=== PATIENT | female | born 1990 | race African-American/Black ===

== ENCOUNTER 2018-02-04 09:57 | Emergency (ER) | payer SELFPAY ==
[~2018-02-04] VITALS: Ht 175.3 cm; Wt 65.8 kg
[~2018-02-04 09:57] MED LIST: CIPR500T94 PO; NAPR500T8 PO; PHEN-318 PO
[2018-02-04 10:26] LABS: BILIRUBIN,URINE NEGATIVE (NEG); CLARITY,URINE CLOUDY; COLOR,URINE AMBER; NITRITE,URINE POSITIVE (NEG); PH,URINE 6.5; PROTEIN,URINE 100 mg/dL (NEG-TRACE)
[2018-02-04 10:34] LABS: BACTERIA,URINE MANY /HPF (0-FEW); SQUAMOUS EPITHELIAL CELL,UR OCC /LPF; WBC,URINE TNTC /HPF (0-4)
[2018-02-04 10:35] LABS: RBC,URINE >40 /HPF (0-2)
[2018-02-04 10:41] VITALS: BP 116/91
[2018-02-04] MEDS ORDERED: METR500T PO (10:47)
[2018-02-04] MEDS ORDERED: CEPH500T PO (10:47)
--- NOTE | 2018-02-04 10:48 | PHYS DOC ---
Past Medical History Past Medical History: UTI Past Surgical History: Alcohol Use: None Drug Use: Marijuana Adult General Chief Complaint Chief Complaint: ABDOMINAL PAIN HPI HPI Patient is a 27 year old female with no significant medical history who presents today complaining of dysuria and vaginal discharge for 3 days. Patient is also complaining of intermittent episodes of slight bilateral pelvic pain. Patient denies any fever, nausea vomiting or diarrhea. Denies any chance she is . Denies any concerns for STDs but would like to be tested and not treated until proven to have an STD. Review of Systems Review of Systems Constitutional: Denies fever or chills [] Eyes: Denies change in visual acuity, redness, or eye pain [] HENT: Denies nasal congestion or sore throat [] Respiratory: Denies cough or shortness of breath [] Cardiovascular: No additional information not addressed in HPI [] GI: Denies nausea, vomiting, bloody stools or diarrhea [] Female : Reports vaginal discharge and slight pelvic pain : Pupils dysuria, denies hematuria [] Musculoskeletal: Denies back pain or joint pain [] Integument: Denies rash or skin lesions [] Neurologic: Denies headache, focal weakness or sensory changes [] All other systems were reviewed and found to be within normal limits, except as documented in this note. Allergies Allergies Allergies Coded Allergies Type Severity Reaction Last Updated Verified No Known Drug Allergies 12/03/13 No Physical Exam Physical Exam Constitutional: Well developed, well nourished, no acute distress, non-toxic appearance. [] HENT: Normocephalic, atraumatic, bilateral external ears normal, oropharynx moist, no oral exudates, nose normal. [] Eyes: PERRLA, EOMI, conjunctiva normal, no discharge. [] Neck: Normal range of motion, no tenderness, supple, no stridor. [] Cardiovascular:Heart rate regular rhythm, no murmur [] Lungs & Thorax: Bilateral breath sounds clear to auscultation [] Abdomen: Bowel sounds normal, soft, no tenderness, no masses, no pulsatile masses. [] Pelvic exam: External pelvic appears normal, cervix is closed, no CMT, no adnexal tenderness, small amount of clear white discharge in the vaginal vault. Skin: Warm, dry, no erythema, no rash. [] Back: No tenderness, no CVA tenderness. [] Extremities: No tenderness, no cyanosis, no clubbing, ROM intact, no edema. [] Neurologic: Alert and oriented X 3, normal motor function, normal sensory function, no focal deficits noted. [] Psychologic: Affect normal, judgement normal, mood normal. [] Current Patient Data Lab Values Laboratory Tests Test 02/04/18 10:03 02/04/18 10:11 Urine Collection Type Void Urine Color Lucretia Urine Clarity Cloudy Urine pH 6.5 Urine Specific [place] >=1.030 Urine Protein 100 mg/dL (NEG-TRACE) Urine Glucose (UA) Negative mg/dL (NEG) Urine Ketones (Stick) Trace mg/dL (NEG) Urine Blood Large (NEG) Urine Nitrite Positive (NEG) Urine Bilirubin Negative (NEG) Urine Urobilinogen Dipstick 1.0 mg/dL (0.2 mg/dL) Urine Leukocyte Esterase Large (NEG) Urine RBC >40 /HPF (0-2) Urine WBC Tntc /HPF (0-4) Urine Squamous Epithelial Cells Occ /LPF Urine Bacteria Many /HPF (0-FEW) POC Urine HCG, Qualitative Hcg negative (Negative) Microbiology 02/04/18 Wet Prep - Final, Complete EKG EKG [] Radiology/Procedures Radiology/Procedures [] Course & Med Decision Making Course & Med Decision Making Pertinent Labs and Imaging studies reviewed. (See chart for details) This is a 27-year-old female patient presented to the ED today with complaints of dysuria and pelvic pain for 3 days. Negative urine hCG, positive for UTI and bacterial vaginosis. Discharged with Flagyl and cephalexin. Tylenol Motrin for pain. Follow-up with primary care doctor or [facility] in 1-2 weeks as needed. Dragon Disclaimer Dragon Disclaimer This electronic medical record was generated, in whole or in part, using a voice recognition dictation system. Departure Departure Impression: Primary Impression: UTI (lower urinary tract infection) Additional Impression: Bacterial vaginosis Disposition: 01 HOME, SELF-CARE Condition: STABLE Referrals: NO PCP (PCP) BIBI MOSS MD Follow-up in one week Patient Instructions: Bacterial Vaginosis, [id number], Urinary Tract Infection Additional Instructions: You have urinary tract infection and bacterial vaginosis. We put you on antibiotics. Ensure you complete them. Follow-up with primary care doctor or OB/ [facility] in 1-2 weeks. Scripts Metronidazole (FLAGYL) 500 Mg Tablet 1 TAB PO BID, #14 TAB Prov: MOHAN ADLER APRN 02/04/18 Cephalexin (CEPHALEXIN) 500 Mg Tablet 1 TAB PO BID, #14 TAB Prov: MOHAN ADLER APRN 02/04/18 Problem Qualifiers MOHAN ADLER APRN Feb 04, 2018 10:47
[2018-02-05 15:27] LABS: GC PROBE Negative (Negative)
== END 2018-02-04 11:09 | disposition home or self-care (01) ==
LOC: ER 09:57
DX: N39.0 Urinary tract infection, site not specified (principal); N76.0 Acute vaginitis; B96.89 Other specified bacterial agents as the cause of diseases classified elsewhere; Z98.890 Other specified postprocedural states
CPT/HCPCS: 81001; 81025; 87491; 87591; 99284; Q0111

== ENCOUNTER 2018-05-14 13:30 | Emergency (ER) | payer SELFPAY ==
[~2018-05-14] VITALS: Ht 175.3 cm; Wt 65.8 kg
[~2018-05-14 13:30] MED LIST changes: +CEPH500T PO; +METR500T PO
[2018-05-14 14:40] VITALS: BP 110/72
[2018-05-14 15:08] LABS: BILIRUBIN,URINE NEGATIVE (NEG); CLARITY,URINE CLOUDY; COLOR,URINE AMBER; NITRITE,URINE POSITIVE (NEG); PROTEIN,URINE 100 mg/dL (NEG-TRACE)
[2018-05-14 15:17] LABS: BACTERIA,URINE MANY /HPF (0-FEW); RBC,URINE TNTC /HPF (0-2); WBC,URINE TNTC /HPF (0-4)
[2018-05-14 15:18] LABS: SQUAMOUS EPITHELIAL CELL,UR MOD /LPF
[2018-05-14] MEDS ORDERED: CEPH-264 PO (15:49)
[2018-05-14] MEDS ORDERED: PHEN100T82 PO (15:49)
--- NOTE | 2018-05-14 15:49 | PHYS DOC ---
Past Medical History Past Medical History: No Pertinent History, UTI Past Surgical History: No Surgical History, Alcohol Use: Occasionally Drug Use: Marijuana Adult General Chief Complaint Chief Complaint: VAGINAL PROBLEM HPI HPI Patient is a 28 year old AA female who presents to the emergency room complaints of painful urination and blood on the toilet tissue when she wipes for the last 2 days. Patient denies any irregular vaginal discharge, back pain, lower abdominal pain, vaginal itching, or concerns of this sexually transmitted infection. Patient states that her last menstrual period was approximately 2 weeks ago, she denies any concerns of . Patient also denies any foul- smelling vaginal discharge or foul-smelling urine. Review of Systems Review of Systems Constitutional: Denies fever or chills [] HENT: Denies nasal congestion or sore throat [] Respiratory: Denies cough or shortness of breath [] GI: Denies abdominal pain, nausea, vomiting, or diarrhea [] : See history of present illness Musculoskeletal: Denies back pain Integument: Denies rash or skin lesions [] Neurologic: Denies headache, focal weakness or sensory changes [] All other systems were reviewed and found to be within normal limits, except as documented in this note. Allergies Allergies Allergies Coded Allergies Type Severity Reaction Last Updated Verified No Known Drug Allergies 12/03/13 No Physical Exam Physical Exam Constitutional: Well developed, well nourished, no acute distress, non-toxic appearance. [] HENT: Normocephalic, atraumatic, bilateral external ears normal, oropharynx moist, no oral exudates, nose normal. [] Eyes: conjunctiva normal, no discharge. [] Neck: Normal range of motion, no tenderness, supple, no stridor. [] Cardiovascular: Heart rate regular rhythm, no murmur [] Lungs & Thorax: Bilateral breath sounds clear to auscultation [] Abdomen: Bowel sounds normal, soft, no tenderness, no masses, no pulsatile masses. [] Skin: Warm, dry, no erythema, no rash. [] Back: No CVA tenderness. [] Neurologic: Alert and oriented X 3, normal motor function, normal sensory function, no focal deficits noted. [] Psychologic: Affect normal, judgement normal, mood normal. [] Current Patient Data Vital Signs Vital Signs Date Time Temp Pulse Resp B/P (MAP) Pulse Ox O2 Delivery O2 Flow Rate FiO2 05/14/18 14:40 98.3 76 19 110/72 (85) 100 Room Air 98.3 Lab Values Laboratory Tests Test 05/14/18 13:40 05/14/18 13:48 Urine Collection Type Void Urine Color Lucretia Urine Clarity Cloudy Urine pH 6.0 Urine Specific [place] >=1.030 Urine Protein 100 mg/dL (NEG-TRACE) Urine Glucose (UA) Negative mg/dL (NEG) Urine Ketones (Stick) 15 mg/dL (NEG) Urine Blood Large (NEG) Urine Nitrite Positive (NEG) Urine Bilirubin Negative (NEG) Urine Urobilinogen Dipstick 1.0 mg/dL (0.2 mg/dL) Urine Leukocyte Esterase Large (NEG) Urine RBC Tntc /HPF (0-2) Urine WBC Tntc /HPF (0-4) Urine Squamous Epithelial Cells Mod /LPF Urine Bacteria Many /HPF (0-FEW) Urine Mucus Mod /LPF POC Urine HCG, Qualitative Hcg negative (Negative) EKG EKG [] Radiology/Procedures Radiology/Procedures [] Course & Med Decision Making Course & Med Decision Making Pertinent Labs and Imaging studies reviewed. (See chart for details) dx: UTI with hematuria Patient refused a pelvic exam. Urine was positive for urinary tract infection with nitrates present. [] Dragon Disclaimer Dragon Disclaimer This electronic medical record was generated, in whole or in part, using a voice recognition dictation system. Departure Departure Impression: Primary Impression: UTI (lower urinary tract infection) Disposition: 01 HOME, SELF-CARE Condition: STABLE Referrals: NO PCP (PCP) Patient Instructions: Urinary Tract Infection, [id number] Additional Instructions: Fill prescription(s) and use as directed. Avoid bladder irritants such as caffeine, carbonation, and spicy foods. Increase clear fluids. Follow up with your primary care doctor if symptoms persist, return to the ER if symptoms worsen. Scripts Phenazopyridine Hcl (PYRIDIUM) 100 Mg Tablet 100 MG PO TID PRN for PAIN for 4 Days, #12 TAB 0 Refills Prov: GENARO MARCUS TAXICAB COORDINATOR 05/14/18 Cephalexin (KEFLEX) 500 Mg Capsule 1 CAP PO BID, #14 CAP 0 Refills Prov: GENARO MARCUS TAXICAB COORDINATOR 05/14/18 GENARO MARCUS TAXICAB COORDINATOR May 14, 2018 15:49
== END 2018-05-14 15:53 | disposition home or self-care (01) ==
LOC: ER 13:30
DX: N39.0 Urinary tract infection, site not specified (principal); Z87.440 Personal history of urinary (tract) infections
CPT/HCPCS: 81001; 81025; 87086; 87186; 99283

== ENCOUNTER 2019-04-17 14:30 | Emergency (ER) | payer SELFPAY ==
[~2019-04-17] VITALS: Ht 175.3 cm; Wt 65.8 kg
[~2019-04-17 14:30] MED LIST changes: +CEPH-264 PO; +PHEN100T82 PO
[2019-04-17 15:29] VITALS: BP 110/57
[2019-04-17 15:32] LABS: BILIRUBIN,URINE NEGATIVE (NEG); CLARITY,URINE TURBID; COLOR,URINE YELLOW; NITRITE,URINE POSITIVE (NEG); PH,URINE 6.5; PROTEIN,URINE >=300 mg/dL (NEG-TRACE)
[2019-04-17 15:50] LABS: BACTERIA,URINE MODERATE /HPF (0-FEW); SQUAMOUS EPITHELIAL CELL,UR OCC /LPF; WBC,URINE TNTC /HPF (0-4)
[2019-04-17] MEDS ORDERED: CIPR250T30 PO (16:37)
[2019-04-17] MEDS ORDERED: PHEN100T82 PO (16:37)
--- NOTE | 2019-04-17 16:37 | PHYS DOC ---
Past Medical History Past Medical History: No Pertinent History, UTI Past Surgical History: No Surgical History, Alcohol Use: Occasionally Drug Use: Marijuana Adult General Chief Complaint Chief Complaint: PAIN ON URINATION HPI HPI Patient is a 29 year old AA female who presents to the emergency department with complaints of painful urination for the last 7 days. Patient reports burning with urination, low back pain, increased urinary frequency. She currently rates her discomfort a 7 out of 10 on pain scale. Patient denies any blood in her urine, abnormal vaginal discharge, vaginal itching, or abnormal vaginal odor. She denies any fever, cough, shortness of breath, nausea, vomiting, diarrhea, palpitations, or chest pain. She denies any alleviating factors. All other ROS is neg unless otherwise noted in HPI. Review of Systems Review of Systems See Above Allergies Allergies Allergies Coded Allergies Type Severity Reaction Last Updated Verified No Known Drug Allergies 12/03/13 No Physical Exam Physical Exam See Above Constitutional: Well developed, well nourished, no acute distress, non-toxic appearance. [] HENT: Normocephalic, atraumatic, bilateral external ears normal, nose normal. [] Eyes: PERRLA, EOMI, conjunctiva normal, no discharge. [] Neck: Normal range of motion, no stridor. [] Lungs & Thorax: Respirations even and unlabored, no retractions, no respiratory distress Abdomen: soft, suprapubic tenderness Skin: Warm, dry, no erythema, no rash. [] Back: No CVA tenderness. [] Extremities: No cyanosis, ROM intact, no edema. [] Neurologic: Alert and oriented X 3, no focal deficits noted. [] Psychologic: Affect normal, judgement normal, mood normal. [] Current Patient Data Vital Signs Vital Signs Date Time Temp Pulse Resp B/P (MAP) Pulse Ox O2 Delivery O2 Flow Rate FiO2 04/17/19 15:29 98.2 88 16 110/57 (74) 99 Room Air 98.2 Lab Values Laboratory Tests Test 04/17/19 15:07 04/17/19 15:09 Urine Color Yellow Urine Clarity Turbid Urine pH 6.5 Urine Specific [place] 1.025 Urine Protein >=300 mg/dL (NEG-TRACE) Urine Glucose (UA) Negative mg/dL (NEG) Urine Ketones (Stick) Negative mg/dL (NEG) Urine Blood Large (NEG) Urine Nitrite Positive (NEG) Urine Bilirubin Negative (NEG) Urine Urobilinogen Dipstick 1.0 mg/dL (0.2 mg/dL) Urine Leukocyte Esterase Large (NEG) Urine RBC 6-10 /HPF (0-2) Urine WBC Tntc /HPF (0-4) Urine Squamous Epithelial Cells Occ /LPF Urine Bacteria Moderate /HPF (0-FEW) Urine Mucus Slight /LPF POC Urine HCG, Qualitative Hcg negative (Negative) EKG EKG [] Radiology/Procedures Radiology/Procedures [] Course & Med Decision Making Course & Med Decision Making Pertinent Labs and Imaging studies reviewed. (See chart for details) [] Dragon Disclaimer Dragon Disclaimer This electronic medical record was generated, in whole or in part, using a voice recognition dictation system. Departure Departure Impression: Primary Impression: UTI (lower urinary tract infection) Disposition: HOME, SELF-CARE Condition: STABLE Referrals: NO PCP (PCP) Patient Instructions: Urinary Tract Infection, [id number] Additional Instructions: Fill prescription(s) and use as directed. Avoid bladder irritants such as caffeine, carbonation, and spicy foods. Increase clear fluids. Follow up with your primary care doctor if symptoms persist, return to the ER if symptoms worsen. Scripts Phenazopyridine Hcl (PYRIDIUM) 100 Mg Tablet 1 TAB PO TID for urinary discomfort for 3 Days, #9 TAB 0 Refills Prov: GENARO MARCUS [employer]IMAL [employer] SUPERVISOR 04/17/19 Ciprofloxacin Hcl (CIPRO) 250 Mg Tablet 1 TAB PO BID for 3 Days, #6 TAB 0 Refills Prov: GENARO MARCUS APRN 04/17/19 GENARO MARCUS APRN Apr 17, 2019 16:37
== END 2019-04-17 16:42 | disposition home or self-care (01) ==
LOC: ER 14:30
DX: N39.0 Urinary tract infection, site not specified (principal); F12.90 Cannabis use, unspecified, uncomplicated; Z98.890 Other specified postprocedural states
CPT/HCPCS: 81001; 81025; 87086; 99284

== ENCOUNTER 2019-06-04 10:02 | Emergency (ER) | payer SELFPAY ==
[~2019-06-04] VITALS: Ht 162.6 cm; Wt 65.9 kg
[~2019-06-04 10:02] MED LIST changes: +CIPR250T30 PO
[2019-06-04 10:32] LABS: BARBITURATES NEG (NEG); BENZODIAZEPINES NEG (NEG); CANNABINOIDS POS (NEG); COCAINE NEG (NEG); METHADONE NEG (NEG); OPIATES NEG (NEG); PHENCYCLIDINE NEG (NEG)
[2019-06-04 10:33] LABS: BILIRUBIN,URINE NEGATIVE (NEG); CLARITY,URINE TURBID; COLOR,URINE AMBER; NITRITE,URINE POSITIVE (NEG); PROTEIN,URINE 100 mg/dL (NEG-TRACE)
[2019-06-04 10:35] LABS: AMPHETAMINE/METHAMPHETAMINE NEG (NEG)
[2019-06-04 10:43] LABS: WBC,URINE TNTC /HPF (0-4)
[2019-06-04 10:44] LABS: BACTERIA,URINE MODERATE /HPF (0-FEW); RBC,URINE FIELD OBSCURED /HPF (0-2); SQUAMOUS EPITHELIAL CELL,UR OCC /LPF
[2019-06-04 10:55] LABS: BASO % 1 % (0-3); EOS # 0.1 x10^3/uL (0.0-0.7); EOS % 1 % (0-3); HEMATOCRIT 34.3 % (36.0-47.0); HEMOGLOBIN 11.5 g/dL (12.0-15.5); LYMPH # 2.1 x10^3/uL (1.0-4.8); LYMPH % 34 % (24-48); MEAN CORPUSCULAR HEMOGLOBIN 29 pg (25-35); MEAN CORPUSCULAR HGB CONC 34 g/dL (31-37); MEAN CORPUSCULAR VOLUME 88 fL (79-100); MONO # 0.6 x10^3/uL (0.0-1.1); MONO % 9 % (0-9); NEUT # 3.4 x10^3/uL (1.8-7.7); NEUT % 55 % (31-73); PLATELET COUNT 243 x10^3/uL (140-400); RED BLOOD COUNT 3.92 x10^6/uL (3.50-5.40); RED CELL DISTRIBUTION WIDTH 15.4 % (11.5-14.5); WHITE BLOOD COUNT 6.2 x10^3/uL (4.0-11.0)
--- NOTE | 2019-06-04 10:57 | PHYS DOC ---
Past Medical History Past Medical History: No Pertinent History, UTI Past Surgical History: No Surgical History, Alcohol Use: Occasionally Drug Use: Marijuana Adult General Chief Complaint Chief Complaint: VAGINAL PROBLEM HPI HPI Patient is a 29 year old female who presents to the ED today requesting to be e valuated for pelvic pain, vaginal pain, dysuria, urgency and frequency which she reports has been going on for months. Patient states she was seen in the ED in April for the same complaint and was diagnosed with UTI, she states she was given antibiotics which she completed but has not obtained any relief. Denies any chance she is . She initially was refusing a pelvic exam. She eventually agreed to it. Review of Systems Review of Systems Constitutional: Denies fever or chills [] Eyes: Denies change in visual acuity, redness, or eye pain [] HENT: Denies nasal congestion or sore throat [] Respiratory: Denies cough or shortness of breath [] Cardiovascular: No additional information not addressed in HPI [] GI: Reports pelvic pain, vaginal pain, urgency, frequency and dysuria, denies nausea, vomiting, bloody stools or diarrhea [] : Denies dysuria or hematuria [] Musculoskeletal: Denies back pain or joint pain [] Integument: Denies rash or skin lesions [] Neurologic: Denies headache, focal weakness or sensory changes [] All other systems were reviewed and found to be within normal limits, except as documented in this note. Current Medications Current Medications Current Medications Medications (Trade) Dose Ordered Sig/Samantha Start Time Stop Time Status Last Admin Dose Admin Acetaminophen/ Hydrocodone Bitart (Lortab 5/325) 1 tab 1X ONCE 06/04/19 11:30 06/04/19 11:33 DC 06/04/19 11:46 1 TAB Azithromycin (Zithromax) 1,000 mg 1X ONCE 06/04/19 13:00 06/04/19 13:01 DC 06/04/19 13:24 1,000 MG Ceftriaxone Sodium (Rocephin Im) 1 gm 1X ONCE 06/04/19 13:00 06/04/19 13:01 UNV Ceftriaxone Sodium (Rocephin) 1 gm 1X ONCE 06/04/19 12:45 06/04/19 12:46 DC 06/04/19 12:38 1 GM Ketorolac Tromethamine (Toradol 30mg Vial) 30 mg 1X ONCE 1/23/20 13:00 06/04/19 13:01 DC 06/04/19 13:24 30 MG Metronidazole (Flagyl) 2,000 mg 1X ONCE 06/04/19 13:00 06/04/19 13:01 DC 06/04/19 13:22 2,000 MG Naproxen (Naprosyn) 500 mg 1X STAT 06/04/19 11:30 06/04/19 11:33 DC 06/04/19 11:46 500 MG Phenazopyridine HCl (Pyridium) 200 mg 1X ONCE 06/04/19 13:00 06/04/19 13:01 DC 06/04/19 13:21 200 MG Sodium Chloride 1,000 ml @ 1,000 mls/hr 1X ONCE 06/04/19 12:45 06/04/19 13:44 06/04/19 12:40 1,000 MLS/HR Allergies Allergies Allergies Coded Allergies Type Severity Reaction Last Updated Verified No Known Drug Allergies 12/03/13 No Physical Exam Physical Exam Constitutional: Well developed, well nourished, no acute distress, non-toxic appearance. [] HENT: Normocephalic, atraumatic, bilateral external ears normal, oropharynx moist, no oral exudates, nose normal. [] Eyes: PERRLA, EOMI, conjunctiva normal, no discharge. [] Neck: Normal range of motion, no tenderness, supple, no stridor. [] Cardiovascular:Heart rate regular rhythm, no murmur [] Lungs & Thorax: Bilateral breath sounds clear to auscultation [] Abdomen: Bowel sounds normal, soft, no tenderness, no masses, no pulsatile masses. [] Pelvic exam External pelvic appears normal, when the speculum was placed in the vaginal vault, moderate amount of what appears to be old blood reported from the vagina, the blood smells, cervix not visualized due to bleeding. No CMT, no adnexal tenderness. Skin: Warm, dry, no erythema, no rash. [] Back: No tenderness, no CVA tenderness. [] Extremities: No tenderness, no cyanosis, no clubbing, ROM intact, no edema. [] Neurologic: Alert and oriented X 3, normal motor function, normal sensory function, no focal deficits noted. [] Psychologic: Affect normal, judgement normal, mood normal. [] Current Patient Data Vital Signs Vital Signs Date Time Temp Pulse Resp B/P (MAP) Pulse Ox O2 Delivery O2 Flow Rate FiO2 06/04/19 12:47 72 18 113/76 (88) 100 Room Air 06/04/19 10:36 98.6 98.6 Lab Values Laboratory Tests Test 06/04/19 10:16 06/04/19 10:18 06/04/19 10:47 Urine Collection Type Unknown Urine Color Lucretia Urine Clarity Turbid Urine pH 6.0 Urine Specific [place] 1.025 Urine Protein 100 mg/dL (NEG-TRACE) Urine Glucose (UA) Negative mg/dL (NEG) Urine Ketones (Stick) Negative mg/dL (NEG) Urine Blood Large (NEG) Urine Nitrite Positive (NEG) Urine Bilirubin Negative (NEG) Urine Urobilinogen Dipstick 1.0 mg/dL (0.2 mg/dL) Urine Leukocyte Esterase Large (NEG) Urine RBC Field obscured /HPF (0-2) Urine WBC Tntc /HPF (0-4) Urine Squamous Epithelial Cells Occ /LPF Urine Bacteria Moderate /HPF (0-FEW) Urine Opiates Screen Neg (NEG) Urine Methadone Screen Neg (NEG) Urine Barbiturates Neg (NEG) Urine Phencyclidine Screen Neg (NEG) Urine Amphetamine/Methamphetamine Neg (NEG) Urine Benzodiazepines Screen Neg (NEG) Urine Cocaine Screen Neg (NEG) Urine Cannabinoids Screen Pos (NEG) Urine Ethyl Alcohol Neg (NEG) POC Urine HCG, Qualitative Hcg negative (Negative) White Blood Count 6.2 x10^3/uL (4.0-11.0) Red Blood Count 3.92 x10^6/uL (3.50-5.40) Hemoglobin 11.5 g/dL (12.0-15.5) L Hematocrit 34.3 % (36.0-47.0) L Mean Corpuscular Volume 88 fL (79-100) Mean Corpuscular Hemoglobin 29 pg (25-35) Mean Corpuscular Hemoglobin Concent 34 g/dL (31-37) Red Cell Distribution Width 15.4 % (11.5-14.5) H Platelet Count 243 x10^3/uL (140-400) Neutrophils (%) (Auto) 55 % (31-73) Lymphocytes (%) (Auto) 34 % (24-48) Monocytes (%) (Auto) 9 % (0-9) Eosinophils (%) (Auto) 1 % (0-3) Basophils (%) (Auto) 1 % (0-3) Neutrophils # (Auto) 3.4 x10^3/uL (1.8-7.7) Lymphocytes # (Auto) 2.1 x10^3/uL (1.0-4.8) Monocytes # (Auto) 0.6 x10^3/uL (0.0-1.1) Eosinophils # (Auto) 0.1 x10^3/uL (0.0-0.7) Basophils # (Auto) 0.0 x10^3/uL (0.0-0.2) Sodium Level 138 mmol/L (136-145) Potassium Level 3.7 mmol/L (3.5-5.1) Chloride Level 105 mmol/L (98-107) Carbon Dioxide Level 22 mmol/L (21-32) Anion Gap 11 (6-14) Blood Urea Nitrogen 11 mg/dL (7-20) Creatinine 0.8 mg/dL (0.6-1.0) Estimated GFR (Cockcroft-Gault) 104.1 BUN/Creatinine Ratio 14 (6-20) Glucose Level 98 mg/dL (70-99) Calcium Level 8.6 mg/dL (8.5-10.1) Total Bilirubin 0.3 mg/dL (0.2-1.0) Aspartate Amino Transferase (AST) 18 U/L (15-37) Alanine Aminotransferase (ALT) 21 U/L (14-59) Alkaline Phosphatase 68 U/L (46-116) Total Protein 7.3 g/dL (6.4-8.2) Albumin 3.6 g/dL (3.4-5.0) Albumin/Globulin Ratio 1.0 (1.0-1.7) Ethyl Alcohol Level < 10 mg/dL (0-10) Laboratory Tests 06/04/19 10:47 Laboratory Tests 06/04/19 10:47 EKG EKG [] Radiology/Procedures Radiology/Procedures []REASON: pelvic pain; Blood in urine per pt; pain over bladder per pt PROCEDURE: PELVIS COMPLETE Examination: PELVIS COMPLETE History: Pelvic pain. Hematuria. Comparison/Correlation: None Findings: Transabdominal pelvic ultrasound was performed. Transvaginal technique was not performed as the patient declined due to pain. Uterus measures 8.3 cm x 5.1 cm x 4.7. Myometrium is unremarkable. Endometrial thickness is 0.6. Ovaries are not identified. No pelvic free fluid. Circumferential wall thickening of the urinary bladder is present. Margin however is irregular. Intermediate echogenicity irregular shaped masslike structure within the urinary bladder noted. Linear densities also present within urinary bladder. Impression: Urinary bladder wall thickening. Intermediate echogenicity within the urinary bladder. Findings which may represent hemorrhage and cystitis. Neoplastic etiology may alternatively account for the findings. Ovaries are not identified. Electronically signed by: Ed Pavon MD (06/04/2019 11:40 AM) [facility] DICTATED and SIGNED BY: ED PAVON MD DATE: 06/04/19 1140 PROCEDURE: CT ABDOMEN PELVIS WO CONTRAST Examination: CT ABDOMEN PELVIS WO CONTRAST History: Dysuria Comparison/Correlation: 06/04/2019 pelvic ultrasound exam Findings: Axial images of the abdomen and pelvis were obtained without contrast. Sagittal and coronal reformatted images were provided. Lack of IV contrast may limit detection of mass lesions and inflammatory processes of the muscle. Visualized lung bases are clear. Liver, spleen, pancreas, adrenal glands, and kidneys are normal. No radiopaque collecting system calculi. Gallbladder fossa is unremarkable. Circumferential wall thickening of the urinary bladder is present with surrounding stranding. Moderate quantity of stool in the colon noted. No extraluminal gas. No inflammatory change about the cecum. No enlarged abdominal or pelvic lymph nodes. No loculated collections. Bony structures are unremarkable. Impression: Circumferential wall thickening of the urinary bladder with surrounding stranding. Cystitis may account for this finding. Neoplastic etiology is not excluded. PQRS Compliance Statement: One or more of the following individualized dose reduction techniques were utilized for this examination: 1. Automated exposure control 2. Adjustment of the mA and/or kV according to patient size 3. Use of iterative reconstruction technique Electronically signed by: Ed Pavon MD (06/04/2019 12:06 PM) [facility] DICTATED and SIGNED BY: ED PAVON MD DATE: 06/04/19 1206 Course & Med Decision Making Course & Med Decision Making Pertinent Labs and Imaging studies reviewed. (See chart for details) This is a 29-year-old female patient presenting to the ED today complaining of vaginal pain, pelvic pain, urgency frequency and dysuria that has been going on for weeks. Was seen in the ED on Apr 17 treated for UTI with Cipro. CBC with a normal WBC, CMP wtih no acute findings, urine analysis is noted for nitrites, large amount of leukocytes. CT of the abdomen and pelvic was noted for cystitis. Patient was given IV fluids. Even Rocephin IV in the ED. I spoke to Dr. mejia for possible admission. He recommended we cover patient for STD with another 1 g of Rocephin IM, and azithromycin. Patient was also given Flagyl. Recommended we discharged her on Cipro because her previous urine culture shows she is susceptible to it. Recommended she follows up with a urologist. Dragon Disclaimer Dragon Disclaimer This electronic medical record was generated, in whole or in part, using a voice recognition dictation system. Departure Departure Impression: Primary Impression: Acute cystitis Disposition: HOME, SELF-CARE Condition: STABLE Referrals: NO PCP (PCP) Please follow up with a urologist at [facility] or [facility] BIBI MOSS MD follow up with the provided OBGYN in 2 week Patient Instructions: Urinary Tract Infection Additional Instructions: You have bladder infection Please take the prescribed antibiotics until completed.] Please follow up with a urologist of your choice. You can call [facility] for Urology follow up Please push fluids. Scripts Ciprofloxacin Hcl (CIPRO) 250 Mg Tablet 1 TAB PO BID for 3 Days, #6 TAB 0 Refills Prov: MOHAN ADLER APRN 06/04/19 Phenazopyridine Hcl (PYRIDIUM) 100 Mg Tablet 1 TAB PO TID for urinary discomfort, #4 TAB 0 Refills Prov: MOHAN ADLER APRN 06/04/19 Problem Qualifiers Primary Impression: Acute cystitis Hematuria presence: with hematuria Qualified Codes: N30.01 - Acute cystitis with hematuria MOHAN ADLER APRN Jun 04, 2019 10:57
[2019-06-04 11:04] LABS: CALCIUM 8.6 mg/dL (8.5-10.1); CREATININE 0.8 mg/dL (0.6-1.0); GFR 104.1; POTASSIUM 3.7 mmol/L (3.5-5.1)
[2019-06-04 11:09] LABS: ALBUMIN 3.6 g/dL (3.4-5.0); TOTAL BILIRUBIN 0.3 mg/dL (0.2-1.0); TOTAL PROTEIN 7.3 g/dL (6.4-8.2)
--- NOTE | 2019-06-04 11:42 | RAD ---
Examination: PELVIS COMPLETE History: Pelvic pain. Hematuria. Comparison/Correlation: None Findings: Transabdominal pelvic ultrasound was performed. Transvaginal technique was not performed as the patient declined due to pain. Uterus measures 8.3 cm x 5.1 cm x 4.7. Myometrium is unremarkable. Endometrial thickness is 0.6. Ovaries are not identified. No pelvic free fluid. Circumferential wall thickening of the urinary bladder is present. Margin however is irregular. Intermediate echogenicity irregular shaped masslike structure within the urinary bladder noted. Linear densities also present within urinary bladder. Impression: Urinary bladder wall thickening. Intermediate echogenicity within the urinary bladder. Findings which may represent hemorrhage and cystitis. Neoplastic etiology may alternatively account for the findings. Ovaries are not identified. Electronically signed by: Ed Briseno MD (06/04/2019 11:40 AM) [facility]
[2019-06-04] MEDS: NAPROXEN 500 MG TABLET PO STA (11:46)
[2019-06-04] MEDS: HYDROcodone/APAP 5/325MG 1 TAB TABLET PO ONE (11:46)
--- NOTE | 2019-06-04 12:09 | RAD ---
Examination: CT ABDOMEN PELVIS WO CONTRAST History: Dysuria Comparison/Correlation: 06/04/2019 pelvic ultrasound exam Findings: Axial images of the abdomen and pelvis were obtained without contrast. Sagittal and coronal reformatted images were provided. Lack of IV contrast may limit detection of mass lesions and inflammatory processes of the muscle. Visualized lung bases are clear. Liver, spleen, pancreas, adrenal glands, and kidneys are normal. No radiopaque collecting system calculi. Gallbladder fossa is unremarkable. Circumferential wall thickening of the urinary bladder is present with surrounding stranding. Moderate quantity of stool in the colon noted. No extraluminal gas. No inflammatory change about the cecum. No enlarged abdominal or pelvic lymph nodes. No loculated collections. Bony structures are unremarkable. Impression: Circumferential wall thickening of the urinary bladder with surrounding stranding. Cystitis may account for this finding. Neoplastic etiology is not excluded. PQRS Compliance Statement: One or more of the following individualized dose reduction techniques were utilized for this examination: 1. Automated exposure control 2. Adjustment of the mA and/or kV according to patient size 3. Use of iterative reconstruction technique Electronically signed by: Ed Briseno MD (06/04/2019 12:06 PM) [facility]
[2019-06-04] MEDS: cefTRIAXone IV Push 1 GM VIAL. IVP ONE (12:38)
[2019-06-04] MEDS: IV NORMAL SALINE 1000ML BAG 1,000 ML IV ONE (12:40)
[2019-06-04 12:47] VITALS: BP 113/76
[2019-06-04] MEDS ORDERED: cefTRIAXone IM 1 GM VIAL IM ONE (13:00)
[2019-06-04] MEDS: PHENAZOPYRIDINE 200 MG TABLET. PO ONE (13:21)
[2019-06-04] MEDS: metroNIDAZOLE 500 MG TABLET PO ONE (13:22)
[2019-06-04] MEDS: AZITHROMYCIN 250 MG TABLET. PO ONE (13:24)
[2019-06-04] MEDS: KETOROLAC 30 MG/ML VIAL. IVP ONE (13:24)
[2019-06-04] MEDS ORDERED: CIPR250T30 PO (13:36)
[2019-06-04] MEDS ORDERED: PHEN100T82 PO (13:36)
== END 2019-06-04 14:10 | disposition home or self-care (01) ==
LOC: ER 10:02
DX: N30.01 Acute cystitis with hematuria (principal); R10.2 Pelvic and perineal pain; R30.0 Dysuria; F12.90 Cannabis use, unspecified, uncomplicated; Z98.890 Other specified postprocedural states
CPT/HCPCS: 36415; 74176; 76856; 80053; 80307; 81001; 81025; 85025; 87086; 96374; 96375; 99285; G0480; J0696; J1885; J7030; Q0144

== ENCOUNTER 2020-03-05 09:41 | Emergency (ER) | payer SELFPAY ==
[~2020-03-05] VITALS: Ht 175.3 cm; Wt 65.9 kg
[2020-03-05 09:50] VITALS: BP 113/74
[2020-03-05 10:13] LABS: BILIRUBIN,URINE NEGATIVE (NEG); CLARITY,URINE TURBID; COLOR,URINE YELLOW; NITRITE,URINE POSITIVE (NEG); PROTEIN,URINE 100 mg/dL (NEG-TRACE); UROBILINOGEN,URINE 0.2 mg/dL (0.2 mg/dL)
--- NOTE | 2020-03-05 10:13 | PHYS DOC ---
Past Medical History Past Medical History: No Pertinent History, UTI Past Surgical History: No Surgical History, Smoking Status: Current Every Day Smoker Alcohol Use: Occasionally Drug Use: Marijuana General Adult EDM: Chief Complaint: MULTIPLE COMPLAINTS HPI: HPI: Patient is a 29 year old female presented to ER today for evaluation of pain and frequent urination for last few days. Patient also complained of left lower jaw pain and swelling since yesterday. Patient denies any fever, no headache, no nausea vomiting. Patient can open and close her mouth without any problem. Review of Systems: Review of Systems: Constitutional: Denies fever or chills. [] Eyes: Denies change in visual acuity. [] HENT: Denies nasal congestion or sore throat. Positive for left lower jaw pain and swelling Respiratory: Denies cough or shortness of breath. [] Cardiovascular: Denies chest pain or edema. [] GI: Denies abdominal pain, nausea, vomiting, bloody stools or diarrhea. [] : Positive for dysuria, frequency Musculoskeletal: Denies back pain or joint pain. [] Integument: Denies rash. [] Neurologic: Denies headache, focal weakness or sensory changes. [] Endocrine: Denies polyuria or polydipsia. [] Lymphatic: Denies swollen glands. [] Psychiatric: Denies depression or anxiety. [] Heart Score: Risk Factors: Risk Factors: DM, Current or recent (<one month) smoker, HTN, HLP, family history of CAD, obesity. Risk Scores: Score 0 - 3: 2.5% MACE over next 6 weeks - Discharge Home Score 4 - 6: 20.3% MACE over next 6 weeks - Admit for Clinical Observation Score 7 - 10: 72.7% MACE over next 6 weeks - Early Invasive Strategies Allergies: Allergies: Allergies Coded Allergies Type Severity Reaction Last Updated Verified No Known Drug Allergies 12/03/13 No Physical Exam: PE: Constitutional: Well developed, well nourished, no acute distress, non-toxic appearance. [] HENT: Normocephalic, atraumatic, bilateral external ears normal, oropharynx mo ist, no oral exudates, nose normal. Left lower jaw swelling, there is a palpable small periapical abscess next to the left lower second molar. There is no trismus Eyes: PERRLA, EOMI, conjunctiva normal, no discharge. [] Neck: Normal range of motion, no tenderness, supple, no stridor. [] Cardiovascular:Heart rate regular rhythm, no murmur [] Lungs & Thorax: Bilateral breath sounds clear to auscultation [] Abdomen: Bowel sounds normal, soft,, no masses, no pulsatile masses. [] There is suprapubic tenderness to palpation Skin: Warm, dry, no erythema, no rash. [] Back: No tenderness, no CVA tenderness. [] Extremities: No tenderness, no cyanosis, no clubbing, ROM intact, no edema. [] Neurologic: Alert and oriented X 3, normal motor function, normal sensory function, no focal deficits noted. [] Psychologic: Affect normal, judgement normal, mood normal. [] Current Patient Data: Labs: Laboratory Tests Test 03/05/20 09:56 POC Urine HCG, Qualitative Hcg negative (Negative) EKG: EKG: [] Radiology/Procedures: Radiology/Procedures: [] Course & Med Decision Making: Course & Med Decision Making Pertinent Labs and Imaging studies reviewed. (See chart for details) Patient is a 29-year-old female who was evaluated in ER due to left lower dental pain and swelling, consistent with periapical abscess. Patient will be discharged home with amoxicillin. Patient also has urinary tract infection. SquareKey Disclaimer: SquareKey Disclaimer: This electronic medical record was generated, in whole or in part, using a voice recognition dictation system. Departure Departure Impression: Primary Impression: Abscess, dental Additional Impression: UTI (lower urinary tract infection) Disposition: 01 MO HOME SELF CARE/HOMELESS Condition: STABLE Referrals: NO PCP (PCP) please follow up with your Dentist next week for reevaluation. Patient Instructions: Dental Abscess, Urinary Tract Infection Additional Instructions: Thank you for visiting our Emergency Department. We appreciate you trusting us with your care. If any additional problems come up don't hesitate to return to visit us. Please follow up with your primary care provider so they can plan additional care if needed and know about the problem that you had. If symptoms worsen come back to the Emergency Department. Any concerning symptoms that start such as chest pain, shortness of air, weakness or numbness on one side of the body, running high fevers or any other concerning symptoms return to the ER. Take 25 mg Benadryl every 4-6 hours as needed for swelling. Scripts Naproxen Sodium (ANAPROX DS) 550 Mg Tablet 1 TAB PO BID PRN for PAIN for 15 Days, #30 TAB 0 Refills Prov: CAILIN MACEDO DO 03/05/20 Tramadol Hcl (TRAMADOL HCL) 50 Mg Tablet 50 MG PO Q6HRS PRN for PAIN, #20 TAB 0 Refills Prov: CAILIN MACEDO DO 03/05/20 Ciprofloxacin Hcl (CIPRO) 500 Mg Tablet 1 TAB PO BID for 7 Days, #14 TAB 0 Refills Prov: CAILIN MACEDO DO 03/05/20 Amoxicillin (AMOXICILLIN) 500 Mg Capsule 1 CAP PO TID for 10 Days, #30 CAP Prov: CAILIN MACEDO DO 03/05/20 CAILIN MACEDO DO Mar 05, 2020 10:13
[2020-03-05] MEDS ORDERED: KETOROLAC 60 MG/2 ML VIAL. IM ONE (10:15)
[2020-03-05] MEDS ORDERED: AMOXICILLIN 250 MG CAPSULE. PO ONE (10:15)
[2020-03-05] MEDS ORDERED: methylPREDNISolone SOD SUCC PF 125 MG/2 ML VIAL. IM ONE (10:15)
[2020-03-05 10:35] LABS: BACTERIA,URINE MANY /HPF (0-FEW); RBC,URINE >40 /HPF (0-2); WBC,URINE TNTC /HPF (0-4)
[2020-03-05] MEDS ORDERED: CIPR500T94 PO (10:45)
[2020-03-05] MEDS ORDERED: TRAM50TA PO (10:45)
[2020-03-05] MEDS ORDERED: AMOX500C PO (10:45)
[2020-03-05] MEDS ORDERED: NAPR-682 PO (10:45)
== END 2020-03-05 11:19 | disposition home or self-care (01) ==
LOC: ER 09:41
DX: N39.0 Urinary tract infection, site not specified (principal); K04.7 Periapical abscess without sinus; F17.200 Nicotine dependence, unspecified, uncomplicated
CPT/HCPCS: 81001; 81025; 87086; 96372; 99284; J1885; J2930

== ENCOUNTER 2020-07-22 14:38 | Emergency (ER) | payer SELFPAY ==
[~2020-07-22] VITALS: Ht 175.3 cm; Wt 63.0 kg
[~2020-07-22 14:38] MED LIST changes: +AMOX500C PO; +NAPR-682 PO; +TRAM50TA PO
[2020-07-22 14:48] VITALS: BP 110/69
[2020-07-22 15:06] LABS: BILIRUBIN,URINE NEGATIVE (NEG); CLARITY,URINE TURBID; COLOR,URINE AMBER; NITRITE,URINE POSITIVE (NEG); PH,URINE 7.5 (<5.0-8.0); PROTEIN,URINE 100 mg/dL (NEG-TRACE); UROBILINOGEN,URINE 0.2 mg/dL (0.2 mg/dL)
[2020-07-22 15:18] LABS: BACTERIA,URINE FIELD OBSCURED /HPF (0-FEW)
[2020-07-22 15:22] LABS: WBC,URINE TNTC /HPF (0-4)
[2020-07-22 15:23] LABS: RBC,URINE TNTC /HPF (0-2)
[2020-07-22] MEDS ORDERED: CEPH500C PO (15:52)
--- NOTE | 2020-07-22 15:52 | ED.ADGEN ---
Past Medical History Past Medical History: No Pertinent History, UTI Past Surgical History: No Surgical History, Smoking Status: Current Every Day Smoker Alcohol Use: Occasionally Drug Use: Marijuana General Adult EDM: Chief Complaint: ABDOMINAL PAIN HPI: HPI: Patient is 30-year-old female with past medical history of multiple UTIs who presents to the emergency room complaining of dysuria, urinary frequency, urinary urgency. She denies any kind of abdominal or pelvic pain. She denies any kind of vaginal discharge or bleeding. She has not had any nausea, vomiting, fever, chills, sweats. She has had multiple UTIs in the past and states this feels similar. She states she has no concerns for sexually transmitted diseases and does not want to be treated for this. Review of Systems: Review of Systems: Complete ROS is negative unless otherwise documented in HPI Allergies: Allergies: Allergies Coded Allergies Type Severity Reaction Last Updated Verified No Known Drug Allergies 12/03/13 No Physical Exam: PE: General: Awake, alert, NAD. Well Nourished, well hydrated. Cooperative HEENT: Atraumatic, EOMI, PERRL, airway patent, moist oral mucosa Neck: Supple, trachea midline Respiratory: CTA bilaterally, normal effort, no wheezing/crackles CV: RRR, no murmur, cap refill <2 GI: Soft, nondistended, nontender, no masses MSK: No obvious deformities Skin: Warm, dry, intact Neuro: A&O x3, speech NL, sensory and motor grossly intact, no focal deficits Psych: Normal affect, normal mood, not suicidal or homicidal Current Patient Data: Labs: Laboratory Tests Test 07/22/20 14:55 07/22/20 14:57 Urine Collection Type Void Urine Color Lucretia Urine Clarity Turbid Urine pH 7.5 (<5.0-8.0) Urine Specific [place] 1.015 (1.000-1.030) Urine Protein 100 mg/dL (NEG-TRACE) Urine Glucose (UA) Negative mg/dL (NEG) Urine Ketones (Stick) Negative mg/dL (NEG) Urine Blood Large (NEG) Urine Nitrite Positive (NEG) Urine Bilirubin Negative (NEG) Urine Urobilinogen Dipstick 0.2 mg/dL (0.2 mg/dL) Urine Leukocyte Esterase Large (NEG) Urine RBC Tntc /HPF (0-2) Urine WBC Tntc /HPF (0-4) Urine Squamous Epithelial Cells Few /LPF Urine Bacteria Field obscured /HPF (0-FEW) Urine Mucus Slight /LPF POC Urine HCG, Qualitative Hcg negative (Negative) Vital Signs: Vital Signs Date Time Temp Pulse Resp B/P (MAP) Pulse Ox O2 Delivery O2 Flow Rate FiO2 07/22/20 14:48 98.1 111 16 110/69 (83) 97 98.1 EKG: EKG: [] Heart Score: C/O Chest Pain: N/A Risk Factors: Risk Factors: DM, Current or recent (<one month) smoker, HTN, HLP, family history of CAD, obesity. Risk Scores: Score 0 - 3: 2.5% MACE over next 6 weeks - Discharge Home Score 4 - 6: 20.3% MACE over next 6 weeks - Admit for Clinical Observation Score 7 - 10: 72.7% MACE over next 6 weeks - Early Invasive Strategies Radiology/Procedures: Radiology/Procedures: [] Course & Med Decision Making: Course & Med Decision Making Pertinent Labs and Imaging studies reviewed. (See chart for details) Patient is 30-year-old female presents to the emergency room complaining of urinary symptoms. Patient is negative test. UA does suggest UTI with nitrite positive suggestive of E. coli. I did offer the patient testing and treatment for sexually transmitted diseases and she declines. Patient will be treated with antibiotics for her UTI. At this time she does not have any systemic signs or signs of pyelonephritis. Patient's test results and vitals while in the ED were fully reviewed and discussed with the patient. Patient is stable and at this time does not need admission to the hospital. We have discussed strict return precautions and the importance of following up with their Primary Care Physician. Patient stated understanding and was given an opportunity to ask any questions. Patient is in agreement with plan. Dragon Disclaimer: Dragon Disclaimer: This electronic medical record was generated, in whole or in part, using a voice recognition dictation system. Departure Departure Impression: Primary Impression: UTI (lower urinary tract infection) Disposition: 01 DC HOME SELF CARE/HOMELESS Condition: STABLE Referrals: NO PCP (PCP) Patient Instructions: Urinary Tract Infection Scripts Cephalexin (CEPHALEXIN) 500 Mg Capsule 1 CAP PO BID, #14 CAP Prov: JAIRO RENAE MD 07/22/20 JAIRO RENAE MD Jul 22, 2020 15:52
== END 2020-07-22 16:04 | disposition home or self-care (01) ==
LOC: ER 14:38
DX: N39.0 Urinary tract infection, site not specified (principal); F17.200 Nicotine dependence, unspecified, uncomplicated
CPT/HCPCS: 81001; 81025; 99283

== ENCOUNTER 2020-09-15 14:22 | Emergency (ER) | payer SELFPAY ==
[~2020-09-15] VITALS: Ht 175.3 cm; Wt 63.0 kg
[~2020-09-15 14:22] MED LIST changes: +CEPH500C PO
[2020-09-15 14:56] VITALS: BP 104/63
[2020-09-15 14:59] LABS: BILIRUBIN,URINE NEGATIVE (NEG); CLARITY,URINE TURBID; COLOR,URINE AMBER; NITRITE,URINE NEGATIVE (NEG); PROTEIN,URINE >=300 mg/dL (NEG-TRACE); UROBILINOGEN,URINE 0.2 mg/dL (0.2 mg/dL)
[2020-09-15 15:09] LABS: BACTERIA,URINE MANY /HPF (0-FEW); RBC,URINE >40 /HPF (0-2); WBC,URINE TNTC /HPF (0-4)
[2020-09-15] MEDS ORDERED: SULF1TAB24 PO (15:46)
--- NOTE | 2020-09-15 15:47 | PHYS DOC ---
Past Medical History Past Medical History: No Pertinent History, UTI Past Surgical History: No Surgical History, Smoking Status: Current Every Day Smoker Alcohol Use: Occasionally Drug Use: Marijuana General Adult EDM: Chief Complaint: PAIN ON URINATION HPI: HPI: Patient is a 30 year old female who presents to the ED today complaining of dysuria for 1 day. Patient denies any fever. Denies any nausea vomiting, denies any chance she is Review of Systems: Review of Systems: Constitutional: Denies fever or chills. [] GI: Denies abdominal pain, nausea, vomiting, bloody stools or diarrhea. [] : Reports dysuria Musculoskeletal: Denies back pain or joint pain. [] Integument: Denies rash. [] Neurologic: Denies headache, focal weakness or sensory changes. [] Psychiatric: Denies depression or anxiety. [] Heart Score: C/O Chest Pain: N/A Risk Factors: Risk Factors: DM, Current or recent (<one month) smoker, HTN, HLP, family history of CAD, obesity. Risk Scores: Score 0 - 3: 2.5% MACE over next 6 weeks - Discharge Home Score 4 - 6: 20.3% MACE over next 6 weeks - Admit for Clinical Observation Score 7 - 10: 72.7% MACE over next 6 weeks - Early Invasive Strategies Allergies: Allergies: Allergies Coded Allergies Type Severity Reaction Last Updated Verified No Known Drug Allergies 12/03/13 No Physical Exam: PE: Constitutional: Well developed, well nourished, no acute distress, non-toxic appearance. [] Abdomen: Bowel sounds normal, soft, no tenderness, no masses, no pulsatile masses. [] Skin: Warm, dry, no erythema, no rash. [] Back: No tenderness, no CVA tenderness. [] Extremities: No tenderness, no cyanosis, no clubbing, ROM intact, no edema. [] Neurologic: Alert and oriented X 3, normal motor function, normal sensory function, no focal deficits noted. [] Psychologic: Affect normal, judgement normal, mood normal. [] Current Patient Data: Labs: Laboratory Tests Test 09/15/20 14:32 09/15/20 14:36 Urine Collection Type Unknown Urine Color Lucretia Urine Clarity Turbid Urine pH 6.0 (<5.0-8.0) Urine Specific [place] 1.025 (1.000-1.030) Urine Protein >=300 mg/dL (NEG-TRACE) Urine Glucose (UA) Negative mg/dL (NEG) Urine Ketones (Stick) Negative mg/dL (NEG) Urine Blood Large (NEG) Urine Nitrite Negative (NEG) Urine Bilirubin Negative (NEG) Urine Urobilinogen Dipstick 0.2 mg/dL (0.2 mg/dL) Urine Leukocyte Esterase Large (NEG) Urine RBC >40 /HPF (0-2) Urine WBC Tntc /HPF (0-4) Urine Squamous Epithelial Cells Mod /LPF Urine Bacteria Many /HPF (0-FEW) POC Urine HCG, Qualitative Hcg negative (Negative) Vital Signs: Vital Signs Date Time Temp Pulse Resp B/P (MAP) Pulse Ox O2 Delivery O2 Flow Rate FiO2 09/15/20 14:56 98.1 79 12 104/63 (77) 100 98.1 EKG: EKG: [] Radiology/Procedures: Radiology/Procedures: [] Course & Med Decision Making: Course & Med Decision Making Pertinent Labs and Imaging studies reviewed. (See chart for details) This is a 30-year-old female patient with dysuria. Positive for UTI. Discharged on Bactrim. Patient requested prescription to be sent to the pharmacy, she stated she is not able to wait for her discharge paperwork. Manuel Disclaimer: Manuel Disclaimer: This electronic medical record was generated, in whole or in part, using a voice recognition dictation system. Departure Departure Impression: Primary Impression: UTI (urinary tract infection) Qualified Codes: N39.0 - Urinary tract infection, site not specified Disposition: HOME / SELF CARE / HOMELESS Condition: STABLE Referrals: NO PCP (PCP) Scripts Sulfamethoxazole/Trimethoprim (BACTRIM DS TABLET) 1 Each Tablet 1 TAB PO BID for 7 Days, #14 TAB 0 Refills Prov: MOHAN ADLER APRN 09/15/20 MOHAN ADLER APRN September 15, 2020 15:46
== END 2020-09-15 15:50 | disposition home or self-care (01) ==
LOC: ER 14:22
DX: N39.0 Urinary tract infection, site not specified (principal); F17.200 Nicotine dependence, unspecified, uncomplicated
CPT/HCPCS: 81001; 81025; 87077; 87086; 87186; 99283

== ENCOUNTER 2020-12-24 14:21 | Emergency (ER) | payer SELFPAY ==
[~2020-12-24] VITALS: Ht 172.7 cm; Wt 62.0 kg
[~2020-12-24 14:21] MED LIST changes: +SULF1TAB24 PO
[2020-12-24 14:30] VITALS: BP 116/81
[2020-12-24 14:42] LABS: CLARITY,URINE TURBID; COLOR,URINE RED
[2020-12-24 14:56] LABS: RBC,URINE TNTC /HPF (0-2)
[2020-12-24 14:58] LABS: WBC,URINE TNTC /HPF (0-4)
[2020-12-24 14:59] LABS: BACTERIA,URINE MODERATE /HPF (0-FEW)
[2020-12-24] MEDS ORDERED: CIPR500T94 PO (15:18)
[2020-12-24] MEDS ORDERED: PHEN100T82 PO (15:18)
--- NOTE | 2020-12-24 15:18 | PHYS DOC ---
Past Medical History Past Medical History: No Pertinent History, UTI Past Surgical History: No Surgical History Smoking Status: Current Every Day Smoker Alcohol Use: Occasionally Drug Use: Marijuana General Adult EDM: Chief Complaint: PAIN ON URINATION HPI: HPI: Patient is a 30 year old female with history of UTI presented to the ED today complaining of dysuria for 1 month. Patient denies any abdominal pain, fever, nausea, vomiting. Review of Systems: Review of Systems: Constitutional: Denies fever or chills. [] GI: Denies abdominal pain, nausea, vomiting, bloody stools or diarrhea. [] : Reports dysuria Musculoskeletal: Denies back pain or joint pain. [] Integument: Denies rash. [] Neurologic: Denies headache, focal weakness or sensory changes. [] Psychiatric: Denies depression or anxiety. [] Heart Score: C/O Chest Pain: N/A Risk Factors: Risk Factors: DM, Current or recent (<one month) smoker, HTN, HLP, family history of CAD, obesity. Risk Scores: Score 0 - 3: 2.5% MACE over next 6 weeks - Discharge Home Score 4 - 6: 20.3% MACE over next 6 weeks - Admit for Clinical Observation Score 7 - 10: 72.7% MACE over next 6 weeks - Early Invasive Strategies Allergies: Allergies: Allergies Coded Allergies Type Severity Reaction Last Updated Verified No Known Drug Allergies 12/24/20 No Physical Exam: PE: Constitutional: Well developed, well nourished, no acute distress, non-toxic appearance. [] Abdomen: Bowel sounds normal, soft, no tenderness, no masses, no pulsatile masses. [] Skin: Warm, dry, no erythema, no rash. [] Back: No tenderness, no CVA tenderness. [] Extremities: No tenderness, no cyanosis, no clubbing, ROM intact, no edema. [] Neurologic: Alert and oriented X 3, normal motor function, normal sensory function, no focal deficits noted. [] Psychologic: Affect normal, judgement normal, mood normal. [] Current Patient Data: Labs: Laboratory Tests Test 12/24/20 14:35 Urine Collection Type Unknown Urine Color Red Urine Clarity Turbid Urine pH (<5.0-8.0) Urine Specific [place] (1.000-1.030) Urine Protein mg/dL (NEG-TRACE) Urine Glucose (UA) mg/dL (NEG) Urine Ketones (Stick) mg/dL (NEG) Urine Blood (NEG) Urine Nitrite (NEG) Urine Bilirubin (NEG) Urine Urobilinogen Dipstick mg/dL (0.2 mg/dL) Urine Leukocyte Esterase (NEG) Urine RBC Tntc /HPF (0-2) Urine WBC Tntc /HPF (0-4) Urine Squamous Epithelial Cells Mod /LPF Urine Bacteria Moderate /HPF (0-FEW) Urine Mucus Slight /LPF Vital Signs: Vital Signs Date Time Temp Pulse Resp B/P (MAP) Pulse Ox O2 Delivery O2 Flow Rate FiO2 12/24/20 14:30 99.1 110 14 116/81 98 99.1 EKG: EKG: [] Radiology/Procedures: Radiology/Procedures: [] Course & Med Decision Making: Course & Med Decision Making Pertinent Labs and Imaging studies reviewed. (See chart for details) This is a 30-year-old female patient presented to the ED today with dysuria for 1 month. History of UTIs. Urine unable to be read by lab because it is too turbid. Of note UA noted for too many to count WBCs, RBCs, and bacteria. We will go ahead and treat this patient on Cipro. Her previous urine culture has been susceptible to the Cipro. Patient was advised to push fluids. Follow-up with PCP in 1 week Manuel Disclaimer: Manuel Disclaimer: This electronic medical record was generated, in whole or in part, using a voice recognition dictation system. Departure Departure Impression: Primary Impression: UTI (urinary tract infection) Qualified Codes: N39.0 - Urinary tract infection, site not specified; R31.9 - Hematuria, unspecified Disposition: 01 HOME / SELF CARE / HOMELESS Condition: STABLE Referrals: NO PCP (PCP) follow up in one week with your doctor Patient Instructions: Urinary Tract Infection Additional Instructions: You have urinary tract infection. We put you on antibiotics, ensure you complete them. Please push fluids. Take Tylenol or Motrin as needed for pain or fever. Take pyridium as needed for pain when urinating. Take it as needed for pain when urinating Scripts Ciprofloxacin Hcl (CIPRO) 500 Mg Tablet 1 TAB PO BID for 7 Days, #14 TAB 0 Refills Prov: MOHAN ADLER APRN 12/24/20 Phenazopyridine Hcl (PYRIDIUM) 100 Mg Tablet 1 TAB PO TID for urinary discomfort for 2 Days, #6 TAB 0 Refills Prov: MOHAN ADLER APRN 12/24/20 MOHAN ADLER APRN Dec 24, 2020 15:18
== END 2020-12-24 15:26 | disposition home or self-care (01) ==
LOC: ER 14:21
DX: N39.0 Urinary tract infection, site not specified (principal); R31.9 Hematuria, unspecified; F17.200 Nicotine dependence, unspecified, uncomplicated
CPT/HCPCS: 81001; 87086; 99283

== ENCOUNTER 2021-01-05 14:11 | Emergency (ER) | payer SELFPAY ==
[~2021-01-05] VITALS: Ht 175.3 cm; Wt 65.9 kg
[2021-01-05 14:42] VITALS: BP 104/67
--- NOTE | 2021-01-05 15:02 | PHYS DOC ---
Past Medical History Past Medical History: No Pertinent History, UTI Past Surgical History: No Surgical History Smoking Status: Current Every Day Smoker Alcohol Use: Occasionally Drug Use: Marijuana General Adult EDM: Chief Complaint: BREAST PROBLEM HPI: HPI: Patient is a 30 year old female who presents to the ED today complaining of 2 tenderness lumps in her left breast that she noted on Saturday this week. Patient denies any drainage from her breast. Denies any fever. Denies any chance she is . Denies any family history or personal history of breast cancer. Review of Systems: Review of Systems: Constitutional: Denies fever or chills. [] Musculoskeletal: Denies back pain or joint pain. [] Integument: Reports lumps in the left breast Neurologic: Denies headache, focal weakness or sensory changes. [] Psychiatric: Denies depression or anxiety. [] Heart Score: C/O Chest Pain: N/A Risk Factors: Risk Factors: DM, Current or recent (<one month) smoker, HTN, HLP, family history of CAD, obesity. Risk Scores: Score 0 - 3: 2.5% MACE over next 6 weeks - Discharge Home Score 4 - 6: 20.3% MACE over next 6 weeks - Admit for Clinical Observation Score 7 - 10: 72.7% MACE over next 6 weeks - Early Invasive Strategies Allergies: Allergies: Allergies Coded Allergies Type Severity Reaction Last Updated Verified No Known Drug Allergies 12/24/20 No Physical Exam: PE: Constitutional: Well developed, well nourished, no acute distress, non-toxic appearance. [] Skin: Left breast at around 2000 position with 2 mildly size lumps that are mobile, no nipple discharge, no nipple dimpling, no palpable lymph nodes in the left axilla. No redness. Back: No tenderness, no CVA tenderness. [] Extremities: No tenderness, no cyanosis, no clubbing, ROM intact, no edema. [] Neurologic: Alert and oriented X 3, normal motor function, normal sensory function, no focal deficits noted. [] Psychologic: Affect normal, judgement normal, mood normal. [] Current Patient Data: Vital Signs: Vital Signs Date Time Temp Pulse Resp B/P (MAP) Pulse Ox O2 Delivery O2 Flow Rate FiO2 01/05/21 14:42 98.6 76 18 104/67 (77) 100 Room Air 98.6 EKG: EKG: [] Radiology/Procedures: Radiology/Procedures: [] Course & Med Decision Making: Course & Med Decision Making Pertinent Labs and Imaging studies reviewed. (See chart for details) This is a 30-year-old female patient presented to the ED today with lumps in her left breast that she noted on Saturday. Recommended following up with an [facility] for an outpatient mammogram and ultrasound. Provided return precautions. Dragon Disclaimer: Dragon Disclaimer: This electronic medical record was generated, in whole or in part, using a voice recognition dictation system. Departure Departure Impression: Primary Impression: Fibroadenoma of left breast Disposition: HOME / SELF CARE / HOMELESS Condition: STABLE Referrals: NO PCP (PCP) BIBI MOSS MD Call her office today and set up a follow-up appointment Patient Instructions: Fibroadenoma, [id number] Additional Instructions: You were seen with lumps in the left breast. Please contact the provided [facility] and set up a follow-up appointment as soon as possible MOHAN ADLER FORESTRY SCIENTIST Jan 05, 2021 15:02
== END 2021-01-05 15:18 | disposition home or self-care (01) ==
LOC: ER 14:11
DX: D24.2 Benign neoplasm of left breast (principal); F17.200 Nicotine dependence, unspecified, uncomplicated; Z87.440 Personal history of urinary (tract) infections
CPT/HCPCS: 99281

== ENCOUNTER 2021-01-09 13:05 | Emergency (ER) | payer OTHER ==
[~2021-01-09] VITALS: Ht 175.3 cm; Wt 63.6 kg
[2021-01-09 14:58] VITALS: BP 118/76
[2021-01-09 15:36] LABS: BILIRUBIN,URINE NEGATIVE (NEG); CLARITY,URINE TURBID; NITRITE,URINE POSITIVE (NEG); PH,URINE 7.5 (<5.0-8.0); PROTEIN,URINE >=300 mg/dL (NEG-TRACE)
[2021-01-09 15:48] LABS: COLOR,URINE YELLOW
[2021-01-09 15:51] LABS: BACTERIA,URINE MANY /HPF (0-FEW); RBC,URINE TNTC /HPF (0-2); U PREG PATIENT NEGATIVE (NEG); WBC,URINE TNTC /HPF (0-4)
[2021-01-09] MEDS ORDERED: CEPH500C PO (16:31)
[2021-01-09] MEDS ORDERED: PHEN-318 PO (16:31)
--- NOTE | 2021-01-09 16:31 | PHYS DOC ---
Past Medical History Past Medical History: No Pertinent History, UTI Past Surgical History: No Surgical History Smoking Status: Current Every Day Smoker Alcohol Use: Occasionally Drug Use: Marijuana General Adult EDM: Chief Complaint: BLOOD IN URINE HPI: HPI: 30-year-old female presents with 2-day history of burning with urination and increased urinary frequency. Patient reports she was seen here approximately 2 weeks ago for similar and was diagnosed with a urinary tract infection. Patient reports completion of her antibiotic with subsequent return of her symptoms. Denies fever chills. Denies . Denies trauma. Patient reports she seems to do well until she has sexual activity and then she seems to "always get a urinary tract infection ". Review of Systems: Review of Systems: Constitutional: Denies fever or chills Eyes: Denies redness or eye pain HENT: Denies nasal congestion or sore throat Respiratory: Denies cough or shortness of breath Cardiovascular: Denies chest pain or palpitations GI: Denies abdominal pain, nausea, or vomiting : Reports dysuria and increased urinary frequency Musculoskeletal: Denies back pain or joint pain Integument: Denies rash or skin lesions Neurologic: Denies headache, focal weakness or sensory changes Complete systems were reviewed and found to be within normal limits, except as documented in this note. Heart Score: C/O Chest Pain: N/A Current Medications: Current Medications Medications (Trade) Dose Ordered Sig/Samantha Start Time Stop Time Status Last Admin Dose Admin Cephalexin HCl (Keflex) 500 mg 1X ONCE 01/09/21 17:00 01/09/21 17:01 Allergies: Allergies: Allergies Coded Allergies Type Severity Reaction Last Updated Verified No Known Drug Allergies 12/24/20 No Physical Exam: PE: Constitutional: Well developed, well nourished, no acute distress, non-toxic appearance HENT: Normocephalic, atraumatic Eyes: Conjunctiva normal, no discharge Neck: Normal range of motion, supple Lungs & Thorax: No respiratory distress, equal chest rise and fall Abdomen: Soft, no tenderness Skin: Warm, dry, no erythema, no rash Back: No tenderness, no CVA tenderness Extremities: No tenderness, ROM intact, no edema Neurologic: Alert and oriented X 3, no focal deficits noted Psychologic: Affect normal, judgment normal Current Patient Data: Labs: Laboratory Tests Test 01/09/21 14:55 Urine Collection Type Unknown Urine Color Yellow Urine Clarity Turbid Urine pH 7.5 (<5.0-8.0) Urine Specific [place] 1.025 (1.000-1.030) Urine Protein >=300 mg/dL (NEG-TRACE) Urine Glucose (UA) Negative mg/dL (NEG) Urine Ketones (Stick) Trace mg/dL (NEG) Urine Blood Large (NEG) Urine Nitrite Positive (NEG) Urine Bilirubin Negative (NEG) Urine Urobilinogen Dipstick 1.0 mg/dL (0.2 mg/dL) Urine Leukocyte Esterase Large (NEG) Urine RBC Tntc /HPF (0-2) Urine WBC Tntc /HPF (0-4) Urine Squamous Epithelial Cells Mod /LPF Urine Bacteria Many /HPF (0-FEW) Urine Test Negative (NEG) Vital Signs: Vital Signs Date Time Temp Pulse Resp B/P (MAP) Pulse Ox O2 Delivery O2 Flow Rate FiO2 01/09/21 14:58 98.0 76 16 118/76 (77) 100 Room Air 98.0 EKG: EKG: [] Radiology/Procedures: Radiology/Procedures: [] Course & Med Decision Making: Course & Med Decision Making Pertinent Lab studies reviewed. (See chart for details) Patient presents with HPI and physical exam consistent for acute UTI. UA obtained with signs of infection. Empiric antibiotic initiated. Urine pr egnancy negative. Symptomatic treatment provided with Pyridium. Patient stable for discharge with outpatient follow-up with PCP. Discussed findings and plan with patient, who acknowledges understanding and agreement. Manuel Disclaimer: Manuel Disclaimer: This electronic medical record was generated, in whole or in part, using a voice recognition dictation system. Departure Departure Impression: Primary Impression: UTI (urinary tract infection) Qualified Codes: N30.00 - Acute cystitis without hematuria Disposition: HOME / SELF CARE / HOMELESS Condition: STABLE Referrals: NO PCP (PCP) NIDA JEAN Jr, MD Patient Instructions: Urinary Tract Infection, [id number] Additional Instructions: Increase fluid hydration. Refrain from sexual activity until completion of your antibiotics. Speak with your INSPECTOR OF DREDGING regarding prevention of further UTIs after sexual activity. Scripts Phenazopyridine Hcl (PYRIDIUM) 200 Mg Tablet 200 MG PO TID for 2 Days, #6 TAB Prov: NETO AYALA DO 01/09/21 Cephalexin (KEFLEX) 500 Mg Capsule 1 CAP PO TID for 7 Days, #21 CAP Prov: NETO AYALA DO 01/09/21 NETO AYALA DO Jan 09, 2021 16:31
[2021-01-09] MEDS ORDERED: PHENAZOPYRIDINE 200 MG TABLET. PO ONE (17:00)
[2021-01-09] MEDS ORDERED: CEPHALEXIN 250 MG CAPSULE. PO ONE (17:00)
== END 2021-01-09 16:40 | disposition home or self-care (01) ==
LOC: ER 13:05
DX: N30.00 Acute cystitis without hematuria (principal); F17.200 Nicotine dependence, unspecified, uncomplicated
CPT/HCPCS: 81001; 81025; 87086; 99283

== ENCOUNTER 2021-02-09 11:42 | Emergency (ER) | payer OTHER ==
[~2021-02-09] VITALS: Ht 175.3 cm; Wt 61.3 kg
[2021-02-09 12:14] VITALS: BP 116/71
[2021-02-09 12:34] LABS: BILIRUBIN,URINE NEGATIVE (NEG); CLARITY,URINE TURBID; COLOR,URINE RED; NITRITE,URINE POSITIVE (NEG); PH,URINE 6.5 (<5.0-8.0); PROTEIN,URINE 100 mg/dL (NEG-TRACE)
[2021-02-09 12:45] LABS: U PREG PATIENT POSITIVE (NEG)
[2021-02-09 12:57] LABS: BACTERIA,URINE MANY /HPF (0-FEW); RBC,URINE >40 /HPF (0-2); WBC,URINE >40 /HPF (0-4)
[2021-02-09] MEDS ORDERED: cefTRIAXone IV Push 1 GM VIAL. IVP ONE (13:45)
[2021-02-09 14:02] LABS: BASO % 1 % (0-3); EOS # 0.1 x10^3/uL (0.0-0.7); EOS % 1 % (0-3); HEMATOCRIT 36.5 % (36.0-47.0); HEMOGLOBIN 12.4 g/dL (12.0-15.5); LYMPH # 2.3 x10^3/uL (1.0-4.8); LYMPH % 29 % (24-48); MEAN CORPUSCULAR HEMOGLOBIN 32 pg (25-35); MEAN CORPUSCULAR HGB CONC 34 g/dL (31-37); MEAN CORPUSCULAR VOLUME 93 fL (79-100); MONO # 0.8 x10^3/uL (0.0-1.1); MONO % 9 % (0-9); NEUT % 61 % (31-73); PLATELET COUNT 270 x10^3/uL (140-400); RED BLOOD COUNT 3.93 x10^6/uL (3.50-5.40); RED CELL DISTRIBUTION WIDTH 12.8 % (11.5-14.5); WHITE BLOOD COUNT 8.2 x10^3/uL (4.0-11.0)
[2021-02-09 14:12] LABS: CALCIUM 9.2 mg/dL (8.5-10.1); CREATININE 0.7 mg/dL (0.6-1.0); GFR 120.6; POTASSIUM 3.3 mmol/L (3.5-5.1)
[2021-02-09 14:18] LABS: ALBUMIN 4.1 g/dL (3.4-5.0); TOTAL BILIRUBIN 0.2 mg/dL (0.2-1.0); TOTAL PROTEIN 8.2 g/dL (6.4-8.2)
--- NOTE | 2021-02-09 14:18 | RAD ---
EXAMINATION: US OB <14 WKS +TV INDICATION: 30 years, Female, pelvic pain. Severe ureteral dilatation with bloody urine. COMPARISON: None TECHNIQUE: Transabdominal and transvaginal ultrasound of the pelvis was performed with grayscale, spe ctral, and color doppler imaging. FINDINGS: Menstrual Status: LMP 12/25/2020 UTERUS: Measures: 9.9 x 6.5 x 5.1 cm. GESTATIONAL SAC: Centimeters/Mean Sac Diameter: 2.0 cm, corresponds to 6 weeks and 6 days. Normal morphology of the ge stational sac. [place]-Rump Length: 0.62 cm corresponds to 6 weeks and 6 days. Heart Rate: 122 bpm. RIGHT OVARY/ADNEXA: Measures: 2.7 x 1.7 x 2.7 cm Right Ovarian Morphology: Normal Right Ovarian Color And Spectral Doppler Flow: Normal LEFT OVARY/ADNEXA: Not visualized. Fluid: None. Small to moderate amount of layering debris seen within the urinary bladder. IMPRESSION 1. Single live intrauterine with estimated gestational age based on crown-rump length is 6 weeks and 6 days. 2. Small to moderate amount of layering debris seen within the urinary bladder, likely blood products . Electronically signed by: Lily Tavera MD (02/09/2021 2:16 PM) [id number]
[2021-02-09] MEDS ORDERED: PNV1TABL25 PO (15:11)
[2021-02-09] MEDS ORDERED: CEPH500T PO (15:11)
--- NOTE | 2021-02-09 15:12 | PHYS DOC ---
Past Medical History Past Medical History: No Pertinent History, UTI (NETO GARCIA APRN) Past Surgical History: No Surgical History (NETO GARCIA APRN) Smoking Status: Current Every Day Smoker Alcohol Use: Occasionally Drug Use: Marijuana (NETO GARCIA APRN) General Adult EDM: Chief Complaint: PELVIC PAIN HPI: HPI: Patient is a 30 year old female presents emergency department concerning low pelvic pain that has been going on for several months, states she has had chronic urinary tract infections and is supposed to follow-up with a urology specialist but has not done so. Patient reports over the past week and a half she has noticed increased lower pelvic pain and believes she is passing blood clots in her urine. Patient denies vaginal bleeding or vaginal discharge. Patient denies STI concerns. Patient reports her last menstrual cycle was in the mid part of December with normal duration of flow. Patient denies nausea, vomiting, shortness of breath or diarrhea. Patient denies other physical complaints or physical concerns. (NETO GARCIA APRN) Review of Systems: Review of Systems: 14 body systems of review of systems have been reviewed. See HPI for pertinent positives and negative responses, otherwise all other systems are negative, nonpertinent or noncontributory. Constitutional: Negative except as outlined in HPI above. Skin: Negative except as outlined in HPI above. Eyes: Negative except as outlined in HPI above. HENT: Negative except as outlined in HPI above. Respiratory: Negative except as outlined in HPI above. Cardiovascular: Negative except as outlined in HPI above. GI: Negative except as outlined in HPI above. : Negative except as outlined in HPI above. Musculoskeletal: Negative except as outlined in HPI above. Integument: Negative except as outlined in HPI above. Neurologic: Negative except as outlined in HPI above. Endocrine: Negative except as outlined in HPI above. Lymphatic: Negative except as outlined in HPI above. Psychiatric: Negative except as outlined in HPI above. (NETO GARCIA APRN) Heart Score: C/O Chest Pain: No Risk Factors: Risk Factors: DM, Current or recent (<one month) smoker, HTN, HLP, family history of CAD, obesity. Risk Scores: Score 0 - 3: 2.5% MACE over next 6 weeks - Discharge Home Score 4 - 6: 20.3% MACE over next 6 weeks - Admit for Clinical Observation Score 7 - 10: 72.7% MACE over next 6 weeks - Early Invasive Strategies (NETO GARCIA APRN) Current Medications: Current Medications Medications (Trade) Dose Ordered Sig/Samantha Start Time Stop Time Status Last Admin Dose Admin Ceftriaxone Sodium (Rocephin) 1 gm 1X ONCE 02/09/21 13:45 02/09/21 13:46 DC 02/09/21 13:45 1 GM (NETO GARCIA APRN) Allergies: Allergies: Allergies Coded Allergies Type Severity Reaction Last Updated Verified No Known Drug Allergies 12/24/20 No (NETO GARCIA APRN) Physical Exam: PE: Constitutional: Well developed, well nourished, no acute distress, non-toxic appearance. 30-year-old female in no apparent distress. HENT: Normocephalic, atraumatic. Eyes: Conjunctiva normal, no discharge. Neck: Normal range of motion, no stridor. Cardiovascular: No cyanosis appreciated, distal cap refill less than 2 seconds. Lungs & Thorax: Patient is in no respiratory distress, no audible adventitious lung sounds appreciated. Abdomen: Nontender, no abnormalities noted. No abdominal masses appreciated. No skin discoloration of the abdomen appreciated. Skin: Warm, dry, no erythema, no rash. Back: No tenderness, no deformities. Extremities: No tenderness, no cyanosis, no clubbing, ROM intact, no edema. [] Neurologic: Alert and oriented X 3, normal motor function, normal sensory f unction, no focal deficits noted. Psychologic: Affect normal, judgement normal, mood normal. (NETO GARCIA APRN) Current Patient Data: Labs: Laboratory Tests Test 02/09/21 12:08 02/09/21 13:48 Urine Collection Type Unknown Urine Color Red Urine Clarity Turbid Urine pH 6.5 (<5.0-8.0) Urine Specific [place] 1.020 (1.000-1.030) Urine Protein 100 mg/dL (NEG-TRACE) Urine Glucose (UA) Negative mg/dL (NEG) Urine Ketones (Stick) Trace mg/dL (NEG) Urine Blood Large (NEG) Urine Nitrite Positive (NEG) Urine Bilirubin Negative (NEG) Urine Urobilinogen Dipstick 1.0 mg/dL (0.2 mg/dL) Urine Leukocyte Esterase Large (NEG) Urine RBC >40 /HPF (0-2) Urine WBC >40 /HPF (0-4) Urine Squamous Epithelial Cells Occ /LPF Urine Bacteria Many /HPF (0-FEW) Urine Mucus Slight /LPF Urine Test Positive (NEG) White Blood Count 8.2 x10^3/uL (4.0-11.0) Red Blood Count 3.93 x10^6/uL (3.50-5.40) Hemoglobin 12.4 g/dL (12.0-15.5) Hematocrit 36.5 % (36.0-47.0) Mean Corpuscular Volume 93 fL (79-100) Mean Corpuscular Hemoglobin 32 pg (25-35) Mean Corpuscular Hemoglobin Concent 34 g/dL (31-37) Red Cell Distribution Width 12.8 % (11.5-14.5) Platelet Count 270 x10^3/uL (140-400) Neutrophils (%) (Auto) 61 % (31-73) Lymphocytes (%) (Auto) 29 % (24-48) Monocytes (%) (Auto) 9 % (0-9) Eosinophils (%) (Auto) 1 % (0-3) Basophils (%) (Auto) 1 % (0-3) Neutrophils # (Auto) 5.0 x10^3/uL (1.8-7.7) Lymphocytes # (Auto) 2.3 x10^3/uL (1.0-4.8) Monocytes # (Auto) 0.8 x10^3/uL (0.0-1.1) Eosinophils # (Auto) 0.1 x10^3/uL (0.0-0.7) Basophils # (Auto) 0.0 x10^3/uL (0.0-0.2) Maternal Serum HCG Beta Subunit 94573 mIU/mL (0-5) H Sodium Level 134 mmol/L (136-145) L Potassium Level 3.3 mmol/L (3.5-5.1) L Chloride Level 101 mmol/L (98-107) Carbon Dioxide Level 25 mmol/L (21-32) Anion Gap 8 (6-14) Blood Urea Nitrogen 7 mg/dL (7-20) Creatinine 0.7 mg/dL (0.6-1.0) Estimated GFR (Cockcroft-Gault) 120.6 BUN/Creatinine Ratio 10 (6-20) Glucose Level 84 mg/dL (70-99) Calcium Level 9.2 mg/dL (8.5-10.1) Total Bilirubin 0.2 mg/dL (0.2-1.0) Aspartate Amino Transferase (AST) 15 U/L (15-37) Alanine Aminotransferase (ALT) 24 U/L (14-59) Alkaline Phosphatase 57 U/L (46-116) Total Protein 8.2 g/dL (6.4-8.2) Albumin 4.1 g/dL (3.4-5.0) Albumin/Globulin Ratio 1.0 (1.0-1.7) Laboratory Tests 02/09/21 13:48 Laboratory Tests 02/09/21 13:48 Vital Signs: Vital Signs Date Time Temp Pulse Resp B/P (MAP) Pulse Ox O2 Delivery O2 Flow Rate FiO2 02/09/21 12:14 98.2 82 16 116/71 (86) 100 Room Air 98.2 (NETO GARCIA APRN) EKG: EKG: [] (NETO GARCIA APRN) Radiology/Procedures: Radiology/Procedures: PATIENT: FILI NORTON ACCOUNT: [id number] : 1990 LOCATION: ER AGE: 30 SEX: F EXAM STATUS: REG ER ORD. PHYSICIAN: NON,STAFF REASON: PELVIC PAIN PROCEDURE: OB <14 WKS W/TV EXAMINATION: US OB <14 WKS +TV INDICATION: 30 years, Female, pelvic pain. Severe ureteral dilatation with bloody urine. COMPARISON: None TECHNIQUE: Transabdominal and transvaginal ultrasound of the pelvis was performed with grayscale, spectral, and color doppler imaging. FINDINGS: Menstrual Status: LMP 12/25/2020 UTERUS: Measures: 9.9 x 6.5 x 5.1 cm. GESTATIONAL SAC: Centimeters/Mean Sac Diameter: 2.0 cm, corresponds to 6 weeks and 6 days. Normal morphology of the gestational sac. [place]-Rump Length: 0.62 cm corresponds to 6 weeks and 6 days. Heart Rate: 122 bpm. RIGHT OVARY/ADNEXA: Measures: 2.7 x 1.7 x 2.7 cm Right Ovarian Morphology: Normal Right Ovarian Color And Spectral Doppler Flow: Normal LEFT OVARY/ADNEXA: Not visualized. Fluid: None. Small to moderate amount of layering debris seen within the urinary bladder. IMPRESSION 1. Single live intrauterine with estimated gestational age based on cr own-rump length is 6 weeks and 6 days. 2. Small to moderate amount of layering debris seen within the urinary bladder, likely blood products. Electronically signed by: Lily Tavera MD (02/09/2021 2:16 PM) [id number] (NETO GARCIA APRN) Course & Med Decision Making: Course & Med Decision Making Pertinent Labs and Imaging studies reviewed. (See chart for details) 30-year-old female, vital signs reviewed, presents emergency department concern ing low pelvic pain. Patient did not have pelvic pain during physical examination, after extensive chart review, patient does have history of chronic urinary tract infections, will order urinalysis assay, urine test. Patient urine is infected, the patient is . When reviewed with patient, patient is surprised to learn that she is , states this is her second , has 1 child living at home. Discussed with patient will order sonogram to evaluate status, lab work CBC, CMP, beta-hCG quant, ABO type. Patient amenable to the planning. Will give 1 g Rocephin IV for urinary tract infection. Sonogram tech reported patient unable to tolerate transvaginal ultrasound however did note normal intrauterine . Pelvic sono as interpreted by house radiologist 6-week 6-day estimated IUP. Blood in bladder which is consistent with patient's report of longstanding cystitis. Discussed findings with patient, strict follow-up with OB specialist, patient reports she has been on the phone since her sonogram as secured appointment next Saturday with obstetrics. Discussed with patient will start on p.o. Keflex for cystitis, vitamin, patient is amenable to ED discharge planning. Patient continues to deny vaginal discharge or vaginal blee ding. States she no longer has pelvic pain. Discussed with the patient all findings and diagnostic testing as well as the need to follow-up with their primary care provider for further evaluation and treatment or return to the ED if any new or worsening symptoms. Strict return precautions were also discussed at length, the patient voiced understanding and agreement with the discharge planning. The patient was nontoxic in appearance, in no apparent distress, and hemodynamically stable at the time of disposition. (NETO GARCIA APRN) Dragon Disclaimer: Dragrasheed Disclaimer: This electronic medical record was generated, in whole or in part, using a voice recognition dictation system. (NETO GARCIA APRN) Departure Departure Impression: Primary Impression: Cystitis Additional Impressions: Abdominal pain during in first trimester Threatened miscarriage Disposition: HOME / SELF CARE / HOMELESS Condition: GOOD Referrals: NO PCP (PCP) Patient Instructions: - Urinary Tract Infection, Threatened Miscarriage Additional Instructions: You were seen today in the emergency department for lower abdominal pain, it was revealed that you are by urine test, and ultrasound was done which revealed an estimated 6-week 6-day intrauterine . Your blood type is O+, your beta hCG quant level today is 38,923. Please take this information to your OB appointment this coming Saturday at the OB clinic. You also are aware of your bladder infection, your started on 1 g of Rocephin today in the emergency department intravenously, I am prescribing you Keflex to take 4 times a day for the next 10 days, I have also prescribing you multivitamin to take daily. Please return to the emergency department for worsening symptoms or other concerns. Thank you for visiting our Emergency Department. It was a pleasure taking care of you today in the emergency department and we appreciate you trusting us with your care. If any additional problems come up don't hesitate to return to visit us. Please follow up with your primary care provider so they can plan additional care if needed and know about the problem that you had. If symptoms worsen come back to the Emergency Department. Any concerning symptoms that start such as chest pain, shortness of air, weakness or numbness on one side of the body, running high fevers or any other concerning symptoms return to the ER. Scripts Pnv Cmb#95/Ferrous Fumarate/Fa ( TABLET) 1 Each Tablet 1 TAB PO DAILY for for 30 Days, #30 TAB 0 Refills Prov: NETO GARCIA APRN 02/09/21 Cephalexin (CEPHALEXIN) 500 Mg Tablet 1 TAB PO QID for UTI, #40 TAB Prov: NETO GARCIA APRN 02/09/21 NETO GARCIA APRN Feb 09, 2021 15:11 CAROLINE LUNA DO Feb 14, 2021 06:01
== END 2021-02-09 15:21 | disposition home or self-care (01) ==
LOC: ER 11:42
DX: O20.0 Threatened abortion (principal); O23.11 Infections of bladder in pregnancy, first trimester; N30.90 Cystitis, unspecified without hematuria; O99.331 Smoking (tobacco) complicating pregnancy, first trimester; Z3A.01 Less than 8 weeks gestation of pregnancy
CPT/HCPCS: 36415; 76801; 76817; 80053; 81001; 81025; 84702; 85025; 86900; 86901; 87086; 87491; 87591; 96374; 99284; J0696

== ENCOUNTER 2021-03-20 19:17 | Emergency (ER) | payer OTHER ==
[~2021-03-20] VITALS: Ht 175.3 cm; Wt 62.6 kg
[~2021-03-20 19:17] MED LIST changes: +PNV1TABL25 PO
[2021-03-20 20:44] LABS: BILIRUBIN,URINE NEGATIVE (NEG); CLARITY,URINE CLOUDY; COLOR,URINE AMBER; NITRITE,URINE NEGATIVE (NEG); PROTEIN,URINE >=300 mg/dL (NEG-TRACE); UROBILINOGEN,URINE 0.2 mg/dL (0.2 mg/dL)
[2021-03-20 20:57] LABS: RBC,URINE >40 /HPF (0-2); WBC,URINE TNTC /HPF (0-4)
[2021-03-20 20:58] LABS: BACTERIA,URINE MANY /HPF (0-FEW)
[2021-03-20 21:03] LABS: U PREG PATIENT POSITIVE (NEG)
[2021-03-20 21:30] VITALS: BP 124/72
[2021-03-20] MEDS ORDERED: CEPH500C PO (21:46)
--- NOTE | 2021-03-20 21:49 | PHYS DOC ---
Past Medical History Past Medical History: No Pertinent History, UTI (VALENTINO CHESTER APRN) Past Surgical History: No Surgical History (VALENTINO CHESTER APRN) Smoking Status: Current Every Day Smoker Alcohol Use: None Drug Use: Marijuana (VALENTINO CHESTER APRN) General Adult EDM: Chief Complaint: VAGINAL PROBLEM HPI: HPI: Patient is a 31-year-old female who presents with burning with urination. Patient states that she is 13 weeks . Denies vaginal discharge or odor. Denies abdominal pain. Denies bleeding. G2, P1. (VALENTINO CHESTER APRN) Review of Systems: Review of Systems: ROS At least 10 ROS systems have been reviewed and are negative except as documented in the HPI. General: Negative except as outlined in HPI above. Skin: Negative except as outlined in HPI above. HEENT: Negative except as outlined in HPI above. Neck: Negative except as outlined in HPI above. Respiratory: Negative except as outlined in HPI above.. Cardiovascular: Negative except as outlined in HPI above. Abdomen: Negative except as outlined in HPI above. : Negative except as outlined in HPI above. Back/MSK: Negative except as outlined in HPI above. Neuro: Negative except as outlined in HPI above. Psych: Negative except as outlined in HPI above. (VALENTINO CHESTER APRN) Heart Score: C/O Chest Pain: No Risk Factors: Risk Factors: DM, Current or recent (<one month) smoker, HTN, HLP, family history of CAD, obesity. Risk Scores: Score 0 - 3: 2.5% MACE over next 6 weeks - Discharge Home Score 4 - 6: 20.3% MACE over next 6 weeks - Admit for Clinical Observation Score 7 - 10: 72.7% MACE over next 6 weeks - Early Invasive Strategies (VALENTINO CHESTER APRN) Allergies: Allergies: Allergies Coded Allergies Type Severity Reaction Last Updated Verified No Known Drug Allergies 12/24/20 No (VALENTINO CHESTER APRN) Physical Exam: PE: Constitutional: Well developed, well nourished, no acute distress, non-toxic appearance. [] HENT: Normocephalic, atraumatic, bilateral external ears normal, oropharynx moist, no oral exudates, nose normal. [] Eyes: PERRLA, EOMI, conjunctiva normal, no discharge. [] Neck: Normal range of motion, no tenderness, supple, no stridor. [] Cardiovascular:Heart rate regular rhythm, no murmur [] Lungs & Thorax: Bilateral breath sounds clear to auscultation [] Abdomen: Bowel sounds normal, soft, no tenderness, no masses, no pulsatile masses. [] Skin: Warm, dry, no erythema, no rash. [] Back: No tenderness, no CVA tenderness. [] Extremities: No tenderness, no cyanosis, no clubbing, ROM intact, no edema. [] Neurologic: Alert and oriented X 3, normal motor function, normal sensory function, no focal deficits noted. [] Psychologic: Affect normal, judgement normal, mood normal. [] (VALENTINO CHESTER APRN) Current Patient Data: Labs: Laboratory Tests Test 03/20/21 20:30 Urine Collection Type Unknown Urine Color Lucretia Urine Clarity Cloudy Urine pH 6.0 (<5.0-8.0) Urine Specific [place] >=1.030 (1.000-1.030) Urine Protein >=300 mg/dL (NEG-TRACE) Urine Glucose (UA) Negative mg/dL (NEG) Urine Ketones (Stick) >=80 mg/dL (NEG) Urine Blood Large (NEG) Urine Nitrite Negative (NEG) Urine Bilirubin Negative (NEG) Urine Urobilinogen Dipstick 0.2 mg/dL (0.2 mg/dL) Urine Leukocyte Esterase Moderate (NEG) Urine RBC >40 /HPF (0-2) Urine WBC Tntc /HPF (0-4) Urine Squamous Epithelial Cells Mod /LPF Urine Bacteria Many /HPF (0-FEW) Urine Mucus Mod /LPF Urine Test Positive (NEG) Vital Signs: Vital Signs Date Time Temp Pulse Resp B/P (MAP) Pulse Ox O2 Delivery O2 Flow Rate FiO2 03/20/21 20:00 98.6 16 100 Room Air 98.6 (VALENTINO CHESTER APRN) EKG: EKG: [] (VALENTINO CHESTER APRN) Radiology/Procedures: Radiology/Procedures: [] (VALENTINO CHESTER APRN) Course & Med Decision Making: Course & Med Decision Making Pertinent Labs and Imaging studies reviewed. (See chart for details) [] 31-year-old female presents with dysuria. Patient reports she is 13 weeks . G2, P1. Patient denies abdominal pain, discharge, odor, bleeding. UA is positive for infection. Patient sent home with antibiotic to treat UTI. Increase fluids. Advised patient to follow-up with OB. Patient reports she understands discharge instructions. Patient is hemodynamically stable upon disposition (VALENTINO CHESTER APRN) Course & Med Decision Making I was the Attending physician on the above date of service of this patient. This patient was evaluated, examined, treated, and dispositioned from the emergency department by the mid-level practitioner. Although I was working at the time , no assistance was requested. Electronically signed, Deloris Recinos DO (DELORIS RECINOS DO) Manuel Disclaimer: Manuel Disclaimer: This electronic medical record was generated, in whole or in part, using a voice recognition dictation system. (VALENTINO CHESTER APRN) Departure Departure Impression: Primary Impression: UTI (urinary tract infection) Qualified Codes: N30.00 - Acute cystitis without hematuria Disposition: HOME / SELF CARE / HOMELESS Condition: STABLE Referrals: NO PCP (PCP) Patient Instructions: - Urinary Tract Infection Additional Instructions: You were seen in the emergency room for burning with urination. Please take your antibiotic and get it filled. Make sure you take it in full and as direc geena. Make sure you are increasing your fluids. Follow-up with OB. Return to emergency room if you have worsening symptoms or concerns. EMERGENCY DEPARTMENT GENERAL DISCHARGE INSTRUCTIONS Thank you for coming to [facility] Emergency Department (ED) today and trusting us with you care. We trust that you had a positive experience in our Emergency Department. If you wish to speak to the department management, you may call the Director at [phone]. YOUR FOLLOW UP INSTRUCTIONS ARE FOLLOWS: 1. Do you have a private Doctor? If you do not have a private doctor, please ask for a resource list of physicians or clinics that may be able to assist you with follow up care. 2. The Emergency Physicain has interpreted your x-rays. The X-Ray specialist will also review them. If there is a change in the findings, you will be notified in 48 hours when at all possible. 3. A lab test or culture has been done, your results will be reviewed and you will be notified if you need a change in treatment. ADDITIONAL INSTRUCTIONS AND INFORMATION: 1. Your care today has been supervised by a physician who is specially trained in emergency care. Many problems require more than one evaluation for a complete diagnosis and treatment. We recommend that you schedule your follow up appointment as recommended to ensure complete treatment of you illness or injury. If you are unable to obtain follow up care and continue to have a problem, or if your condition worsens, we recommend that you return to the ED. 2. We are not able to safely determine your condition over the phone nor are we able to give sound medical advice over the phone. For these safety reasons, if you call for medical advice we will ask you to come to the ED for further evaluation. 3. If you have any questions regarding these discharge instructions please call the ED at [phone]. SAFETY INFORMATION: In the interest of safety, wellness, and injury prevention; we encourage you to wear your sealbelt, if you smoke; quite smoking, and we encourage family to use a protective helmet for bicycling and other sporting events that present an increased risk for head injury. IF YOUR SYMPTOMS WORSEN OR NEW SYMPTOMS DEVELOP, OR YOU HAVE CONCERNS ABOUT YOUR CONDITION; OR IF YOUR CONDITION WORSENS WHILE YOU ARE WAITING FOR YOUR FOLLOW UP APPOINTMENT; EITHER CONTACT YOUR PRIMARY CARE DOCTOR, THE PHYSICIAN WHOSE NAME AND NUMBER YOU WERE GIVEN, OR RETURN TO THE ED IMMEDIATELY. Scripts Cephalexin (KEFLEX) 500 Mg Capsule 1 CAP PO TID for UTI for 7 Days, #21 CAP 0 Refills Prov: VALENTINO CHESTER APRN 03/20/21 VALENTINO CHESTER APRN Mar 20, 2021 21:49 DELORIS RECINOS DO Mar 25, 2021 06:08
== END 2021-03-20 21:54 | disposition home or self-care (01) ==
LOC: ER 19:17
DX: O26.891 Other specified pregnancy related conditions, first trimester (principal); N30.00 Acute cystitis without hematuria; O99.331 Smoking (tobacco) complicating pregnancy, first trimester; Z3A.13 13 weeks gestation of pregnancy
CPT/HCPCS: 81001; 81025; 87086; 99283

== ENCOUNTER 2021-05-08 17:51 | Emergency (ER) | payer OTHER | END 2021-05-09 01:57 | disposition left against medical advice (07) | LOC: ER 17:51 | DX: O26.892 Other specified pregnancy related conditions, second trimester (principal); R10.30 Lower abdominal pain, unspecified; Z3A.19 19 weeks gestation of pregnancy; Z53.21 Procedure and treatment not carried out due to patient leaving prior to being seen by health care provider ==